=== PATIENT | female | born 1990 | race Caucasian/White ===

== ENCOUNTER 2023-08-16 16:18 | Emergency (ER) | payer BC ==
--- NOTE | 2023-08-16 16:59 | ED ---
General Adult HPI - General Chief complaint: Vaginal Bleeding Stated complaint: Poss Miscarriage Time Seen by Provider: 08/16/23 16:46 Source: patient, RN notes reviewed Mode of arrival: ambulatory Limitations: no limitations - History of Present Illness Initial comments: 33-year-old female presents emergency Department with chief complaint of possible miscarriage. Patient states that she was sent from urgent care for further evaluation. She states she's had bleeding for the last 10 days or more. Patient states her last mental cycle was at the beginning of July. Patient states she has mild abdominal cramping. She states she felt lightheaded and she is concerned as she's had bleeding for several days which brought her to the urgent care. Patient had a positive test at urgent care. Patient is A0 - Related Data Allergies Allergy/AdvReac Type Severity Reaction Status Date / Time codeine Allergy Rash/Hives Verified 08/16/23 16:41 Review of Systems ROS Statement: Those systems with pertinent positive or pertinent negative responses have been documented in the HPI. ROS Other: All systems not noted in ROS Statement are negative. Past Medical History Past Medical History: No Reported History History of Any Multi-Drug Resistant Organisms: None Reported Past Surgical History: No Surgical Hx Reported Smoking Status: Never smoker Past Alcohol Use History: None Reported Past Drug Use History: None Reported General Exam Limitations: no limitations General appearance: alert, in no apparent distress Head exam: Present: atraumatic, normocephalic, normal inspection Respiratory exam: Present: normal lung sounds bilaterally. Absent: respiratory distress, wheezes, rales, rhonchi, stridor Cardiovascular Exam: Present: regular rate, normal rhythm, normal heart sounds. Absent: systolic murmur, diastolic murmur, rubs, gallop, clicks GI/Abdominal exam: Present: soft, normal bowel sounds. Absent: distended, tenderness, guarding, rebound, rigid Back exam: Absent: CVA tenderness (R), CVA tenderness (L) Neurological exam: Present: alert Course Vital Signs 08/16/23 16:38 Temperature 98.1 F Pulse Rate 77 Respiratory 20 Rate Blood Pressure 118/81 O2 Sat by Pulse 99 Oximetry Medical Decision Making - Medical Decision Making Was pt. sent in by a medical professional or institution (, PA, SOFTWARE WRITER, urgent care, hospital, or penitentiary...) When possible be specific @ -Urgent care Did you speak to anyone other than the patient for history (EMS, parent, family, police, friend...)? What history was obtained from this source @ -No Did you review nursing and triage notes (agree or disagree)? Why? @ -I reviewed and agree with nursing and triage notes Were old charts reviewed (outside hosp., previous admission, EMS record, old EKG, old radiological studies, urgent care reports/EKG's, penitentiary records)? Report findings @ -No old charts were reviewed Differential Diagnosis (chest pain, altered mental status, abdominal pain women, abdominal pain men, vaginal bleeding, weakness, fever, dyspnea, syncope, headache, dizziness, GI bleed, back pain, seizure, CVA, palpatations, mental health, musculoskeletal)? @ -Differential Vaginal Bleeding: Spontaneous , threatened , molar , ectopic , bloody show, incompetent cervix, abruptioplacenta, placenta previa, uterine rupture, dysfunctional uterine bleeding, hemorrhage, uterine fibroids, this is not meant to be an all-inclusive list. EKG interpreted by me (3pts min.). @ -None X-rays interpreted by me (1pt min.). @ -None done CT interpreted by me (1pt min.). @ -None done U/S interpreted by me (1pt. min.). @ -Ultrasound shows no intrauterine , no complications What testing was considered but not performed or refused? (CT, X-rays, U/S, labs)? Why? @ -None What meds were considered but not given or refused? Why? @ -None Did you discuss the management of the patient with other professionals (professionals i.e. , PA, SOFTWARE WRITER, lab, RT, psych nurse, social organization professor, shellfish processing laborer, teacher, operational intelligence officer, bottle caser)? Give summary @ -No Was smoking cessation discussed for >3mins.? @ -No Was critical care preformed (if so, how long)? @ -No Were there social determinants of health that impacted care today? How? (Homelessness, low income, unemployed, alcoholism, drug addiction, transportation, low edu. Level, literacy, decrease access to med. care, care home, rehab)? @ -No Was there de-escalation of care discussed even if they declined (Discuss DNR or withdrawal of care, Hospice)? DNR status @ -No What co-morbidities impacted this encounter? (DM, HTN, Smoking, COPD, CAD, Cancer, CVA, ARF, Chemo, Hep., AIDS, mental health diagnosis, sleep apnea, morbid obesity)? @ -None Was patient admitted / discharged? Hospital course, mention meds given and route, prescriptions, significant lab abnormalities, going to OR and other pertinent info. @ -[Discharge likely is having a miscarriage patient states her hCG very low. Patient will have repeat hCG in 2 days to confirm. Patient will be discharged in stable condition. Undiagnosed new problem with uncertain prognosis? @ -No Drug Therapy requiring intensive monitoring for toxicity (Heparin, Nitro, Insulin, Cardizem)? @ -No Were any procedures done? @ -No Diagnosis/symptom? @ -Threatened miscarriage Acute, or Chronic, or Acute on Chronic? @ -[Acute Uncomplicated (without systemic symptoms) or Complicated (systemic symptoms)? @ -Uncomplicated Side effects of treatment? @ -No Exacerbation, Progression, or Severe Exacerbation? @ -No Poses a threat to life or bodily function? How? (Chest pain, [place], [place], pneumonia, PE, COPD, DKA, ARF, appy, cholecystitis, CVA, Diverticulitis, Homicidal, Suicidal, threat to staff... and all critical care pts) @ -No - Lab Data Result diagrams: 08/16/23 17:19 08/16/23 17:19 Lab Results 08/16/23 08/16/23 08/16/23 Range/Units 17:00 17:17 17:19 WBC 5.2 (3.8-10.6) k/uL RBC 4.08 (3.80-5.40) m/uL Hgb 13.6 (11.4-16.0) gm/dL Hct 39.2 (34.0-46.0) % MCV 96.1 (80.0-100.0) fL MCH 33.3 (25.0-35.0) pg MCHC 34.6 (31.0-37.0) g/dL RDW 13.1 (11.5-15.5) % Plt Count 389 (150-450) k/uL MPV 7.3 Neutrophils % 61 % Lymphocytes % 29 % Monocytes % 4 % Eosinophils % 2 % Basophils % 1 % Neutrophils # 3.2 (1.3-7.7) k/uL Lymphocytes # 1.5 (1.0-4.8) k/uL Monocytes # 0.2 (0-1.0) k/uL Eosinophils # 0.1 (0-0.7) k/uL Basophils # 0.0 (0-0.2) k/uL Sodium (137-145) mmol/L Potassium (3.5-5.1) mmol/L Chloride (98-107) mmol/L Carbon Dioxide (22-30) mmol/L Anion Gap mmol/L BUN (7-17) mg/dL Creatinine (0.52-1.04) mg/dL Est GFR (CKD-EPI)AfAm (>60 ml/min/1.73 sqM) Est GFR (CKD-EPI)NonAf (>60 ml/min/1.73 sqM) Glucose (74-99) mg/dL Calcium (8.4-10.2) mg/dL Total Bilirubin (0.2-1.3) mg/dL AST (14-36) U/L ALT (4-34) U/L Alkaline Phosphatase (38-126) U/L Total Protein (6.3-8.2) g/dL Albumin (3.5-5.0) g/dL HCG, Quant mIU/mL Urine Color Urine Appearance (Clear) Urine pH (5.0-8.0) Ur Specific [place] (1.001-1.035) Urine Protein (Negative) Urine Glucose (UA) (Negative) Urine Ketones (Negative) Urine Blood (Negative) Urine Nitrite (Negative) Urine Bilirubin (Negative) Urine Urobilinogen (<2.0) mg/dL Ur Leukocyte Esterase (Negative) Urine RBC (0-5) /hpf Urine WBC (0-5) /hpf Ur Squamous Epith Cells (0-4) /hpf Urine Mucus (None) /hpf Blood Type A Positive Blood Type Confirm A Positive Blood Type Recheck No Previous Record Bld Type Recheck Status CABO Indicated 08/16/23 08/16/23 Range/Units 17:19 17:19 WBC (3.8-10.6) k/uL RBC (3.80-5.40) m/uL Hgb (11.4-16.0) gm/dL Hct (34.0-46.0) % MCV (80.0-100.0) fL MCH (25.0-35.0) pg MCHC (31.0-37.0) g/dL RDW (11.5-15.5) % Plt Count (150-450) k/uL MPV Neutrophils % % Lymphocytes % % Monocytes % % Eosinophils % % Basophils % % Neutrophils # (1.3-7.7) k/uL Lymphocytes # (1.0-4.8) k/uL Monocytes # (0-1.0) k/uL Eosinophils # (0-0.7) k/uL Basophils # (0-0.2) k/uL Sodium 143 (137-145) mmol/L Potassium 4.0 (3.5-5.1) mmol/L Chloride 108 H (98-107) mmol/L Carbon Dioxide 21 L (22-30) mmol/L Anion Gap 14 mmol/L BUN 17 (7-17) mg/dL Creatinine 0.65 (0.52-1.04) mg/dL Est GFR (CKD-EPI)AfAm >90 (>60 ml/min/1.73 sqM) Est GFR (CKD-EPI)NonAf >90 (>60 ml/min/1.73 sqM) Glucose 86 (74-99) mg/dL Calcium 9.3 (8.4-10.2) mg/dL Total Bilirubin 0.5 (0.2-1.3) mg/dL AST 24 (14-36) U/L ALT 23 (4-34) U/L Alkaline Phosphatase 66 (38-126) U/L Total Protein 7.6 (6.3-8.2) g/dL Albumin 4.7 (3.5-5.0) g/dL HCG, Quant 23.3 mIU/mL Urine Color Red Urine Appearance Turbid H (Clear) Urine pH 6.0 (5.0-8.0) Ur Specific [place] 1.028 (1.001-1.035) Urine Protein 1+ H (Negative) Urine Glucose (UA) Negative (Negative) Urine Ketones Trace H (Negative) Urine Blood Large H (Negative) Urine Nitrite Negative (Negative) Urine Bilirubin Negative (Negative) Urine Urobilinogen <2.0 (<2.0) mg/dL Ur Leukocyte Esterase Small H (Negative) Urine RBC >182 H (0-5) /hpf Urine WBC 87 H (0-5) /hpf Ur Squamous Epith Cells 18 H (0-4) /hpf Urine Mucus Rare H (None) /hpf Blood Type Blood Type Confirm Blood Type Recheck Bld Type Recheck Status Disposition Clinical Impression: Threatened miscarriage Disposition: HOME SELF-CARE Condition: Stable Instructions (If sedation given, give patient instructions): Threatened Miscarriage (ED) Additional Instructions: Please return to the Emergency Department if symptoms worsen or any other concerns. Is patient prescribed a controlled substance at d/c from ED?: No Referrals: Edmundo Garza MD [Primary Care Provider] - 1-2 days Time of Disposition: 18:38
[2023-08-16 17:49] LABS: ALT 23 U/L (4-34); AST 24 U/L (14-36); African American GFR (CKD) >90 (>60 ml/min/1.73 sqM); Albumin 4.7 g/dL (3.5-5.0); Alkaline Phosphatase 66 U/L (38-126); Anion Gap 14 mmol/L; Blood Urea Nitrogen 17 mg/dL (7-17); Calcium 9.3 mg/dL (8.4-10.2); Carbon Dioxide 21 mmol/L (22-30); Chloride 108 mmol/L (98-107); Glucose 86 mg/dL (74-99); Non-African American GFR(CKD) >90 (>60 ml/min/1.73 sqM); Sodium 143 mmol/L (137-145); Total Bilirubin 0.5 mg/dL (0.2-1.3); Total Protein 7.6 g/dL (6.3-8.2)
[2023-08-16 17:52] LABS: Basophils % (A) 1 %; Eosinophils # (A) 0.1 k/uL (0-0.7); Eosinophils % (A) 2 %; HCT 39.2 % (34.0-46.0); HGB 13.6 gm/dL (11.4-16.0); Lymphocytes # (A) 1.5 k/uL (1.0-4.8); Lymphocytes % (A) 29 %; MCH 33.3 pg (25.0-35.0); MCHC 34.6 g/dL (31.0-37.0); MCV 96.1 fL (80.0-100.0); Mean Platelet Volume 7.3; Monocytes # (A) 0.2 k/uL (0-1.0); Monocytes % (A) 4 %; Neutrophils # (A) 3.2 k/uL (1.3-7.7); Neutrophils % (A) 61 %; Platelet Count 389 k/uL (150-450); RBC 4.08 m/uL (3.80-5.40); RDW 13.1 % (11.5-15.5); WBC 5.2 k/uL (3.8-10.6)
[2023-08-16 17:55] LABS: Appearance,Urine Turbid (Clear); Bilirubin,Urine Negative (Negative); Blood,Urine Large (Negative); Color,Urine Red; Glucose,Urine (UA) Negative (Negative); Ketones,Urine Trace (Negative); Leukocyte Esterase,Urine Small (Negative); Mucus,Urine Rare /hpf; Nitrite,Urine Negative (Negative); Protein,Urine 1+ (Negative); RBC,Urine >182 /hpf (0-5); Specific Gravity,Urine 1.028 (1.001-1.035); Squamous Epithelial Cell,Urine 18 /hpf (0-4); Urobilinogen,Urine <2.0 mg/dL (<2.0); WBC,Urine 87 /hpf (0-5)
[2023-08-16 18:06] LABS: HCG,Quantitative Serum 23.3 mIU/mL
--- NOTE | 2023-08-16 18:25 | US ---
EXAMINATION TYPE: Transabdominal and transvaginal ultrasound pelvis OB less than 14 weeks DATE OF EXAM: 08/16/2023 6:09 PM COMPARISON: NONE CLINICAL INDICATION: Female, 33 years old with history of , pain, no established ultrasound; patient went to urgent care because she has been bleeding since 08/04/2023 and found out today she wa s . , no pain, h/o IUI this past year with no success, not currently on fertility medicat ion EXAM PERFORMED: Ultrasound of the pelvis was performed via transabdominal and transvaginal approach. EXAM MEASUREMENTS: GESTATIONAL AGE / DATING Physician Established: Not yet established Dates by LMP: (1 weeks/5 days) EDC: 05/10/2024 Dates by First Scan: No previous this is first scan Dates by Current Scan for: No IUP seen at this time MATERNAL ANATOMY Uterus: 8.0 x 4.8 x 3.9cm. Endometrial thickness 3.4 mm by transvaginal exam Right Ovary: 3.6 x 1.9 x 1.8cm Left Ovary: 2.9 x 2.3 x 1.8cm Post CDS / Adnexa: wnl Presence of free fluid: no Presence of corpus luteal cyst: no Presence of subchorionic bleed: no GESTATION / SURVEY IUP: No IUP seen at this time Date of LMP: 08/04/2023 Beta HcG (if available): 23.3 No adnexal mass identified. IMPRESSION: 1. No evidence of intrauterine or extrauterine at this time. 2. Recommend follow-up of serial serum beta-hCG levels, and ultrasound/s as needed.
[2023-08-16 19:27] VITALS: BP 110/61; PULSE 98; RESP 18; TEMP 98.7
== END 2023-08-16 19:09 | disposition home or self-care (01) ==
LOC: EC 16:18
DX: O20.0 Threatened abortion (principal); Z88.5 Allergy status to narcotic agent; Z3A.01 Less than 8 weeks gestation of pregnancy
CPT/HCPCS: 36415; 76801; 76817; 80053; 81001; 84702; 85025; 86900; 86901; 99284

== ENCOUNTER → 2023-08-19 | Outpatient (CLI) | payer BC | END | disposition home or self-care (01) | LOC: LABWHC1 09:57 | DX: Z00.00 Encounter for general adult medical examination without abnormal findings (principal); O20.0 Threatened abortion; Z3A.00 Weeks of gestation of pregnancy not specified | CPT/HCPCS: 36415; 84702 ==

== ENCOUNTER 2023-08-31 13:12 | Emergency (ER) | payer BC ==
[2023-08-31 13:48] VITALS: TEMP 98.7
--- NOTE | 2023-08-31 13:59 | ED ---
General Adult HPI - General Chief complaint: Neuro Symptoms/Deficit Stated complaint: hands/feet numbness Time Seen by Provider: 08/31/23 13:35 Source: patient, RN notes reviewed, old records reviewed Mode of arrival: ambulatory - History of Present Illness Initial comments: This a 33-year-old female complains of tingling sensation in both legs up to mid thigh and both arms. Patient states it started after she had a miscarriage 2 weeks ago. Patient states it's constant all day long every day. Patient denies any weakness. Patient is able to coordinate everything normally. Patient states it just feels different on her extremities as if they were falling asleep. Patient denies any fever chills. Patient has any back or neck pain. Patient denies any similar symptoms in the past. Patient denies starting any medications. - Related Data Home Medications Medication Instructions Recorded Confirmed Cariprazine HCl [Vraylar] 3 mg PO HS 08/31/23 08/31/23 Cyanocobalamin (Vitamin B-12) 1,000 mcg PO DAILY 08/31/23 08/31/23 [Vitamin B-12] Dextroamphetamine/Amphetamine 15 mg PO BID 08/31/23 08/31/23 [Adderall] Multivitamins, Thera [Multivitamin 1 tab PO DAILY 08/31/23 08/31/23 (formulary)] Sertraline [Zoloft] 150 mg PO DAILY 08/31/23 08/31/23 desog-e.estradioL/e.estradioL 1 tab PO DIRECTED 08/31/23 08/31/23 [Azurette 28 Day Tablet] hydrOXYzine HCL [Atarax] 50 mg PO BID PRN 08/31/23 08/31/23 Allergies Allergy/AdvReac Type Severity Reaction Status Date / Time codeine Allergy Rash/Hives Verified 08/31/23 14:44 Review of Systems ROS Statement: Those systems with pertinent positive or pertinent negative responses have been documented in the HPI. ROS Other: All systems not noted in ROS Statement are negative. Past Medical History Past Medical History: No Reported History History of Any Multi-Drug Resistant Organisms: None Reported Past Surgical History: No Surgical Hx Reported Smoking Status: Never smoker Past Alcohol Use History: None Reported Past Drug Use History: None Reported General Exam - General Exam Comments Initial Comments: GENERAL: Patient is well-developed and well-nourished. Patient is nontoxic and well- hydrated and is in no acute distress. ENT: Neck is soft and supple. No significant lymphadenopathy is noted. Oropharynx is clear. Moist mucous membranes. Neck has full range of motion without eliciting any pain. EYES: The sclera were anicteric and conjunctiva were pink and moist. Extraocular movements were intact and pupils were equal round and reactive to light. Eyelids were unremarkable. PULMONARY: Unlabored respirations. Good breath sounds bilaterally. No audible rales rhonchi or wheezing was noted. CARDIOVASCULAR: There is a regular rate and rhythm without any murmurs gallops or rubs. ABDOMEN: Soft and nontender with normal bowel sounds. SKIN: Skin is clear with no lesions or rashes and otherwise unremarkable. NEUROLOGIC: Patient is alert and oriented x3. Cranial nerves II through XII are grossly i ntact. Motor and sensory are also intact. Normal speech, volume and content. Symmetrical smile. Finger to nose testing is normal bilaterally. Patient's NIH is 0 MUSCULOSKELETAL: Normal extremities with adequate strength and full range of motion. LYMPHATICS: No significant lymphadenopathy is noted PSYCHIATRIC: Normal psychiatric evaluation. Course Vital Signs 08/31/23 13:30 Temperature 98.7 F Pulse Rate 68 Respiratory 18 Rate Blood Pressure 108/67 O2 Sat by Pulse 99 Oximetry Medical Decision Making - Medical Decision Making Was pt. sent in by a medical professional or institution ([facility] Joshua, BUILD AND DEPLOYMENT ENGINEER, urgent care, hospital, or prison...) When possible be specific @ -No Did you speak to anyone other than the patient for history (EMS, parent, family, police, friend...)? What history was obtained from this source @ -No Did you review nursing and triage notes (agree or disagree)? Why? @ -I reviewed and agree with nursing and triage notes Were old charts reviewed (outside hosp., previous admission, EMS record, old EKG, old radiological studies, urgent care reports/EKG's, prison records)? Report findings @ -No old charts were reviewed Differential Diagnosis (chest pain, altered mental status, abdominal pain women, abdominal pain men, vaginal bleeding, weakness, fever, dyspnea, syncope, headache, dizziness, GI bleed, back pain, seizure, CVA, palpatations, mental health, musculoskeletal)? @ -not applicable EKG interpreted by me (3pts min.). @ -As above X-rays interpreted by me (1pt min.). @ -None done CT interpreted by me (1pt min.). @ -None done U/S interpreted by me (1pt. min.). @ -None done What testing was considered but not performed or refused? (CT, X-rays, U/S, labs)? Why? @ -None What meds were considered but not given or refused? Why? @ -None Did you discuss the management of the patient with other professionals (professionals i.e. , PA, BUILD AND DEPLOYMENT ENGINEER, lab, RT, psych nurse, social media job titles, classification analyst, teacher, service officer, case loader operator)? Give summary @ -No Was smoking cessation discussed for >3mins.? @ -No Was critical care preformed (if so, how long)? @ -No Were there social determinants of health that impacted care today? How? (Homelessness, low income, unemployed, alcoholism, drug addiction, transportation, low edu. Level, literacy, decrease access to med. care, half-way, rehab)? @ -No Was there de-escalation of care discussed even if they declined (Discuss DNR or withdrawal of care, Hospice)? DNR status @ -No What co-morbidities impacted this encounter? (DM, HTN, Smoking, COPD, CAD, Cancer, CVA, ARF, Chemo, Hep., AIDS, mental health diagnosis, sleep apnea, morbid obesity)? @ -None Was patient admitted / discharged? Hospital course, mention meds given and r oute, prescriptions, significant lab abnormalities, going to OR and other pertinent info. @ -Lab work was all within normal range. Patient has a primary medical care doctor that she'll follow-up with for these paresthesias. Patient was instructed to return if there is any worsening or new symptoms Undiagnosed new problem with uncertain prognosis? @ -No Drug Therapy requiring intensive monitoring for toxicity (Heparin, Nitro, Insulin, Cardizem)? @ -No Were any procedures done? @ -No Diagnosis/symptom? @ -Paresthesias Acute, or Chronic, or Acute on Chronic? @ -Acute Uncomplicated (without systemic symptoms) or Complicated (systemic symptoms)? @ -Complicated Side effects of treatment? @ -No Exacerbation, Progression, or Severe Exacerbation? @ -No Poses a threat to life or bodily function? How? (Chest pain, [place], [place], pneumonia, PE, COPD, DKA, ARF, appy, cholecystitis, CVA, Diverticulitis, Homicidal, Suicidal, threat to staff... and all critical care pts) @ -No - Lab Data Result diagrams: 08/31/23 13:49 08/31/23 13:49 Lab Results 08/31/23 08/31/23 08/31/23 Range/Units 13:49 13:49 13:49 WBC 3.8 (3.8-10.6) k/uL RBC 3.65 L (3.80-5.40) m/uL Hgb 12.4 (11.4-16.0) gm/dL Hct 35.5 (34.0-46.0) % MCV 97.2 (80.0-100.0) fL MCH 34.0 (25.0-35.0) pg MCHC 34.9 (31.0-37.0) g/dL RDW 12.9 (11.5-15.5) % Plt Count 302 (150-450) k/uL MPV 7.4 Neutrophils % 49 % Lymphocytes % 39 % Monocytes % 4 % Eosinophils % 3 % Basophils % 1 % Neutrophils # 1.9 (1.3-7.7) k/uL Lymphocytes # 1.5 (1.0-4.8) k/uL Monocytes # 0.2 (0-1.0) k/uL Eosinophils # 0.1 (0-0.7) k/uL Basophils # 0.0 (0-0.2) k/uL Sodium 141 (137-145) mmol/L Potassium 4.0 (3.5-5.1) mmol/L Chloride 106 (98-107) mmol/L Carbon Dioxide 23 (22-30) mmol/L Anion Gap 12 mmol/L BUN 18 H (7-17) mg/dL Creatinine 0.65 (0.52-1.04) mg/dL Est GFR (CKD-EPI)AfAm >90 (>60 ml/min/1.73 sqM) Est GFR (CKD-EPI)NonAf >90 (>60 ml/min/1.73 sqM) Glucose 86 (74-99) mg/dL Calcium 9.1 (8.4-10.2) mg/dL Magnesium 1.8 (1.6-2.3) mg/dL Total Bilirubin 0.7 (0.2-1.3) mg/dL AST 19 (14-36) U/L ALT 19 (4-34) U/L Alkaline Phosphatase 53 (38-126) U/L Total Protein 7.3 (6.3-8.2) g/dL Albumin 4.4 (3.5-5.0) g/dL TSH 1.370 (0.465-4.680) mIU/L Urine Opiates Screen Not Detected (NotDetected) Ur Oxycodone Screen Not Detected (NotDetected) Urine Methadone Screen Not Detected (NotDetected) Ur Barbiturates Screen Not Detected (NotDetected) U Tricyclic Antidepress Not Detected (NotDetected) Ur Phencyclidine Scrn Not Detected (NotDetected) Ur Amphetamines Screen Detected H (NotDetected) U Methamphetamines Scrn Not Detected (NotDetected) U Benzodiazepines Scrn Not Detected (NotDetected) Urine Cocaine Screen Not Detected (NotDetected) U Marijuana (THC) Screen Not Detected (NotDetected) Disposition Clinical Impression: Paresthesia Disposition: HOME SELF-CARE Condition: Good Instructions (If sedation given, give patient instructions): Paresthesia (ED) Is patient prescribed a controlled substance at d/c from ED?: No Referrals: Edmundo Garza MD [Primary Care Provider] - 1-2 days Time of Disposition: 15:10
[2023-08-31 14:08] LABS: Basophils % (A) 1 %; Eosinophils # (A) 0.1 k/uL (0-0.7); Eosinophils % (A) 3 %; HCT 35.5 % (34.0-46.0); HGB 12.4 gm/dL (11.4-16.0); Lymphocytes # (A) 1.5 k/uL (1.0-4.8); Lymphocytes % (A) 39 %; MCHC 34.9 g/dL (31.0-37.0); MCV 97.2 fL (80.0-100.0); Mean Platelet Volume 7.4; Monocytes # (A) 0.2 k/uL (0-1.0); Monocytes % (A) 4 %; Neutrophils # (A) 1.9 k/uL (1.3-7.7); Neutrophils % (A) 49 %; Platelet Count 302 k/uL (150-450); RBC 3.65 m/uL (3.80-5.40); RDW 12.9 % (11.5-15.5); WBC 3.8 k/uL (3.8-10.6)
[2023-08-31 14:20] LABS: ALT 19 U/L (4-34); AST 19 U/L (14-36); African American GFR (CKD) >90 (>60 ml/min/1.73 sqM); Albumin 4.4 g/dL (3.5-5.0); Alkaline Phosphatase 53 U/L (38-126); Anion Gap 12 mmol/L; Blood Urea Nitrogen 18 mg/dL (7-17); Calcium 9.1 mg/dL (8.4-10.2); Carbon Dioxide 23 mmol/L (22-30); Chloride 106 mmol/L (98-107); Glucose 86 mg/dL (74-99); Magnesium 1.8 mg/dL (1.6-2.3); Non-African American GFR(CKD) >90 (>60 ml/min/1.73 sqM); Sodium 141 mmol/L (137-145); Total Bilirubin 0.7 mg/dL (0.2-1.3); Total Protein 7.3 g/dL (6.3-8.2)
[2023-08-31 14:32] LABS: Amphetamine Screen,Urine Detected (NotDetected); Barbiturate Screen,Urine Not Detected (NotDetected); Benzodiazepines Screen,Urine Not Detected (NotDetected); Cocaine Screen,Urine Not Detected (NotDetected); Methadone Screen, Urine Not Detected (NotDetected); Opiate Screen,Urine Not Detected (NotDetected); Oxycodone Screen, Urine Not Detected (NotDetected); Phencyclidine Screen,Urine Not Detected (NotDetected); Tricyclic Antidepressant,Urine Not Detected (NotDetected); Urn Cannabinoid Scrn Not Detected (NotDetected)
[2023-08-31 15:52] VITALS: BP 94/54; PULSE 70; RESP 16
== END 2023-08-31 15:31 | disposition home or self-care (01) ==
LOC: EC 13:12
DX: R20.2 Paresthesia of skin (principal); Z88.5 Allergy status to narcotic agent
CPT/HCPCS: 36415; 80053; 80306; 83735; 84443; 85025; 99284

== ENCOUNTER 2023-11-17 18:01 | Inpatient (IN) | payer BC ==
--- NOTE | 2023-11-17 19:15 | ED ---
General Adult HPI - General Chief complaint: Neuro Symptoms/Deficit Stated complaint: Numbness in both legs Time Seen by Provider: 11/17/23 19:10 Source: patient, family Mode of arrival: ambulatory Limitations: no limitations - History of Present Illness Initial comments: 33-year-old female presenting to the ED with a chief complaint of weakness. Patient states that since July has had intermittent weakness of her bilateral lower legs. Reports that this started after a miscarriage. Denies any viral symptoms prior to onset of symptoms such as abdominal pain, nausea, vomiting, changes in bowel or bladder habits, or URI symptoms. States that this started from the bottom of her feet and progressively worked its way up and feeling of numbness is now in her abdomen. States that she was seeing a chiropractor and reports that this seemed to help at first however is not helping anymore. Does note some back pain with this as well. No saddle anes thesia or incontinence. However, patient does note that she seems to have difficulties completely voiding urine. Secondary to the symptoms, patient states that she has had significant difficulty ambulating. - Related Data Home Medications Medication Instructions Recorded Confirmed Cariprazine HCl [Vraylar] 3 mg PO HS 08/31/23 11/17/23 Dextroamphetamine/Amphetamine 15 mg PO BID@0900,1430 08/31/23 11/17/23 [Adderall] Multivitamins, Thera [Multivitamin 1 tab PO DAILY 08/31/23 11/17/23 (formulary)] Sertraline [Zoloft] 150 mg PO DAILY 08/31/23 11/17/23 hydrOXYzine HCL [Atarax] 50 mg PO BID PRN 08/31/23 11/17/23 Allergies Allergy/AdvReac Type Severity Reaction Status Date / Time codeine Allergy Rash/Hives Verified 11/17/23 21:09 Review of Systems ROS Statement: Those systems with pertinent positive or pertinent negative responses have been documented in the HPI. ROS Other: All systems not noted in ROS Statement are negative. Past Medical History Past Medical History: No Reported History History of Any Multi-Drug Resistant Organisms: None Reported Past Surgical History: No Surgical Hx Reported Past Psychological History: No Psychological Hx Reported Smoking Status: Never smoker Past Alcohol Use History: Occasional Past Drug Use History: None Reported General Exam - General Exam Comments Initial Comments: Visual Physical Exam Vital signs reviewed General: Well-appearing, nontoxic, no acute distress. Head: Normocephalic, atraumatic Eyes: PERRLA, EOMI ENT: Airway patent Chest: Nonlabored breathing Skin: No visual rash, normal skin tone Neuro: Alert and oriented 3 Musculoskeletal: No gross abnormalities. Strength and sensation equal and intact in bilateral lower extremities. Limitations: physical limitation (Difficulty ambulating) Eye exam: Present: PERRL, EOMI Neck exam: Present: normal inspection Respiratory exam: Present: normal lung sounds bilaterally Cardiovascular Exam: Present: regular rate, normal rhythm GI/Abdominal exam: Present: soft, normal bowel sounds. Absent: distended, tenderness, guarding, rebound, rigid Extremities exam: Present: normal inspection, other (Plantarflexion and dorsiflexion intact. Patellar reflexes intact bilaterally as well. Patient does have difficulties ambulating. Unable to stand on one leg bilaterally without falling. ) Neurological exam: Present: alert, oriented X3, CN II-XII intact Skin exam: Present: warm, dry Course Vital Signs 11/17/23 18:37 Temperature 97.8 F Pulse Rate 100 Respiratory 18 Rate Blood Pressure 127/79 O2 Sat by Pulse 98 Oximetry Medical Decision Making - Medical Decision Making Quicknote portion performed. Signed Erlin Encinas PA-C Was pt. sent in by a medical professional or institution ([facility], DATA CONVERSION DEVELOPER, urgent care, hospital, or detention...) When possible be specific @ -No Did you speak to anyone other than the patient for history (EMS, parent, family, police, friend...)? What history was obtained from this source @ -No Did you review nursing and triage notes (agree or disagree)? Why? @ -I reviewed and agree with nursing and triage notes Were old charts reviewed (outside hosp., previous admission, EMS record, old EKG, old radiological studies, urgent care reports/EKG's, detention records)? Report findings @ -No old charts were reviewed Differential Diagnosis (chest pain, altered mental status, abdominal pain women, abdominal pain men, vaginal bleeding, weakness, fever, dyspnea, syncope, headache, dizziness, GI bleed, back pain, seizure, CVA, palpatations, mental health, musculoskeletal)? @ -Differential Weakness: Hypoglycemia, shock, sepsis, hyponatremia, anemia, infection, [place], ETOH, adverse medicine reaction, overdose, stroke, this is not meant to be an all-inclusive list. EKG interpreted by me (3pts min.). @ -None X-rays interpreted by me (1pt min.). @ -None done CT interpreted by me (1pt min.). @ -CT brain and lumbar spine interpreted me which revealed no evidence of acute finding. U/S interpreted by me (1pt. min.). @ -None done What testing was considered but not performed or refused? (CT, X-rays, U/S, labs)? Why? @ -None What meds were considered but not given or refused? Why? @ -None Did you discuss the management of the patient with other professionals (professionals i.e. , PA, DATA CONVERSION DEVELOPER, lab, RT, psych nurse, clinical social work therapist, radioactivity technician, t eacher, plant protection officer, director case)? Give summary @ -Case discussed with Dr. Garza who accepts admission Was smoking cessation discussed for >3mins.? @ -No Was critical care preformed (if so, how long)? @ -No Were there social determinants of health that impacted care today? How? (Homelessness, low income, unemployed, alcoholism, drug addiction, transportation, low edu. Level, literacy, decrease access to med. care, fci, rehab)? @ -No Was there de-escalation of care discussed even if they declined (Discuss DNR or withdrawal of care, Hospice)? DNR status @ -No What co-morbidities impacted this encounter? (DM, HTN, Smoking, COPD, CAD, Cancer, CVA, ARF, Chemo, Hep., AIDS, mental health diagnosis, sleep apnea, morbid obesity)? @ -None Was patient admitted / discharged? Hospital course, mention meds given and route, prescriptions, significant lab abnormalities, going to OR and other pertinent info. @ -Admission 33-year-old female presenting to the ED with a chief complaint of weakness. Patient states over the past few months has had difficulties with weakness/paresthesias stating that since onset has feels some ascending weakness/paresthesias from her feet now going up to her abdomen which is now causing her significant difficulties in ambulating. On examination patient has good plantarflexion dorsiflexion of bilateral lower extremities. Good sensation as well. Good patellar reflexes. However upon ambulation patient is having significant difficulties. Unable to stand on [address] over[address] of the brain and lumbar spine revealed no evidence of acute finding. Laboratory studies reviewed. CBC unremarkable. CMP unremarkable. CRP 0.5. UA largely unremarkable. ESR pending. Secondary to the significant difficulty ambulating patient will be admitted to observation with consult to neurology. Undiagnosed new problem with uncertain prognosis? @ -No Drug Therapy requiring intensive monitoring for toxicity (Heparin, Nitro, Insulin, Cardizem)? @ -No Were any procedures done? @ -No Diagnosis/symptom? @ -Difficulty ambulating Acute, or Chronic, or Acute on Chronic? @ -Acute on chronic Uncomplicated (without systemic symptoms) or Complicated (systemic symptoms)? @ -Complicated Side effects of treatment? @ -No Exacerbation, Progression, or Severe Exacerbation? @ -No Poses a threat to life or bodily function? How? (Chest pain, [place], AZ, pneumonia, PE, COPD, DKA, ARF, appy, cholecystitis, CVA, Diverticulitis, Homicidal, Suici dolores, threat to staff... and all critical care pts) @ -Possibly, GBS syndrome or other causes of weakness/difficulty ambulating - Lab Data Result diagrams: 11/17/23 20:06 11/17/23 20:06 Lab Results 11/17/23 11/17/23 11/17/23 Range/Units 20:06 20:06 20:06 WBC 6.1 (3.8-10.6) k/uL RBC 4.06 (3.80-5.40) m/uL Hgb 13.3 (11.4-16.0) gm/dL Hct 39.6 (34.0-46.0) % MCV 97.6 (80.0-100.0) fL MCH 32.7 (25.0-35.0) pg MCHC 33.5 (31.0-37.0) g/dL RDW 13.4 (11.5-15.5) % Plt Count 358 (150-450) k/uL MPV 7.5 Neutrophils % 53 % Lymphocytes % 38 % Monocytes % 4 % Eosinophils % 2 % Basophils % 0 % Neutrophils # 3.3 (1.3-7.7) k/uL Lymphocytes # 2.3 (1.0-4.8) k/uL Monocytes # 0.2 (0-1.0) k/uL Eosinophils # 0.1 (0-0.7) k/uL Basophils # 0.0 (0-0.2) k/uL Sodium (137-145) mmol/L Potassium (3.5-5.1) mmol/L Chloride (98-107) mmol/L Carbon Dioxide (22-30) mmol/L Anion Gap mmol/L BUN (7-17) mg/dL Creatinine (0.52-1.04) mg/dL Est GFR (CKD-EPI)AfAm (>60 ml/min/1.73 sqM) Est GFR (CKD-EPI)NonAf (>60 ml/min/1.73 sqM) Glucose (74-99) mg/dL Calcium (8.4-10.2) mg/dL Total Bilirubin (0.2-1.3) mg/dL AST (14-36) U/L ALT (4-34) U/L Alkaline Phosphatase (38-126) U/L C-Reactive Protein (<1.0) mg/dL Total Protein (6.3-8.2) g/dL Albumin (3.5-5.0) g/dL Urine Color Colorless Urine Appearance Cloudy H (Clear) Urine pH 6.0 (5.0-8.0) Ur Specific Brethren 1.013 (1.001-1.035) Urine Protein Negative (Negative) Urine Glucose (UA) Negative (Negative) Urine Ketones Negative (Negative) Urine Blood Negative (Negative) Urine Nitrite Negative (Negative) Urine Bilirubin Negative (Negative) Urine Urobilinogen <2.0 (<2.0) mg/dL Ur Leukocyte Esterase Moderate H (Negative) Urine RBC 2 (0-5) /hpf Urine WBC 3 (0-5) /hpf Ur Squamous Epith Cells 9 H (0-4) /hpf Urine Bacteria Rare H (None) /hpf Urine Mucus Rare H (None) /hpf Urine HCG, Qual Not Detected (Not Detectd) 11/17/23 Range/Units 20:06 WBC (3.8-10.6) k/uL RBC (3.80-5.40) m/uL Hgb (11.4-16.0) gm/dL Hct (34.0-46.0) % MCV (80.0-100.0) fL MCH (25.0-35.0) pg MCHC (31.0-37.0) g/dL RDW (11.5-15.5) % Plt Count (150-450) k/uL MPV Neutrophils % % Lymphocytes % % Monocytes % % Eosinophils % % Basophils % % Neutrophils # (1.3-7.7) k/uL Lymphocytes # (1.0-4.8) k/uL Monocytes # (0-1.0) k/uL Eosinophils # (0-0.7) k/uL Basophils # (0-0.2) k/uL Sodium 140 (137-145) mmol/L Potassium 3.6 (3.5-5.1) mmol/L Chloride 109 H (98-107) mmol/L Carbon Dioxide 21 L (22-30) mmol/L Anion Gap 10 mmol/L BUN 13 (7-17) mg/dL Creatinine 0.65 (0.52-1.04) mg/dL Est GFR (CKD-EPI)AfAm >90 (>60 ml/min/1.73 sqM) Est GFR (CKD-EPI)NonAf >90 (>60 ml/min/1.73 sqM) Glucose 90 (74-99) mg/dL Calcium 9.1 (8.4-10.2) mg/dL Total Bilirubin 0.6 (0.2-1.3) mg/dL AST 24 (14-36) U/L ALT 20 (4-34) U/L Alkaline Phosphatase 60 (38-126) U/L C-Reactive Protein 0.5 (<1.0) mg/dL Total Protein 7.7 (6.3-8.2) g/dL Albumin 4.6 (3.5-5.0) g/dL Urine Color Urine Appearance (Clear) Urine pH (5.0-8.0) Ur Specific Brethren (1.001-1.035) Urine Protein (Negative) Urine Glucose (UA) (Negative) Urine Ketones (Negative) Urine Blood (Negative) Urine Nitrite (Negative) Urine Bilirubin (Negative) Urine Urobilinogen (<2.0) mg/dL Ur Leukocyte Esterase (Negative) Urine RBC (0-5) /hpf Urine WBC (0-5) /hpf Ur Squamous Epith Cells (0-4) /hpf Urine Bacteria (None) /hpf Urine Mucus (None) /hpf Urine HCG, Qual (Not Detectd) Disposition Clinical Impression: Difficulty in walking, Paresthesias Disposition: ADMITTED IP TO THIS [facility] Condition: Good Referrals: Edmundo Garza MD [Primary Care Provider] - 1-2 days Time of Disposition: 23:00
[2023-11-17 20:16] LABS: Basophils % (A) 0 %; Eosinophils # (A) 0.1 k/uL (0-0.7); Eosinophils % (A) 2 %; HCT 39.6 % (34.0-46.0); HGB 13.3 gm/dL (11.4-16.0); Lymphocytes # (A) 2.3 k/uL (1.0-4.8); Lymphocytes % (A) 38 %; MCH 32.7 pg (25.0-35.0); MCHC 33.5 g/dL (31.0-37.0); MCV 97.6 fL (80.0-100.0); Mean Platelet Volume 7.5; Monocytes # (A) 0.2 k/uL (0-1.0); Monocytes % (A) 4 %; Neutrophils # (A) 3.3 k/uL (1.3-7.7); Neutrophils % (A) 53 %; Platelet Count 358 k/uL (150-450); RBC 4.06 m/uL (3.80-5.40); RDW 13.4 % (11.5-15.5); WBC 6.1 k/uL (3.8-10.6)
[2023-11-17 20:26] LABS: Appearance,Urine Cloudy (Clear); Bacteria,Urine Rare /hpf; Bilirubin,Urine Negative (Negative); Blood,Urine Negative (Negative); Color,Urine Colorless; Glucose,Urine (UA) Negative (Negative); Ketones,Urine Negative (Negative); Leukocyte Esterase,Urine Moderate (Negative); Mucus,Urine Rare /hpf; Nitrite,Urine Negative (Negative); Protein,Urine Negative (Negative); RBC,Urine 2 /hpf (0-5); Specific Gravity,Urine 1.013 (1.001-1.035); Squamous Epithelial Cell,Urine 9 /hpf (0-4); Urobilinogen,Urine <2.0 mg/dL (<2.0); WBC,Urine 3 /hpf (0-5)
[2023-11-17 20:28] LABS: ALT 20 U/L (4-34); AST 24 U/L (14-36); African American GFR (CKD) >90 (>60 ml/min/1.73 sqM); Albumin 4.6 g/dL (3.5-5.0); Alkaline Phosphatase 60 U/L (38-126); Anion Gap 10 mmol/L; Blood Urea Nitrogen 13 mg/dL (7-17); C Reactive Protein 0.5 mg/dL (<1.0); Calcium 9.1 mg/dL (8.4-10.2); Carbon Dioxide 21 mmol/L (22-30); Chloride 109 mmol/L (98-107); Glucose 90 mg/dL (74-99); Non-African American GFR(CKD) >90 (>60 ml/min/1.73 sqM); Potassium 3.6 mmol/L (3.5-5.1); Sodium 140 mmol/L (137-145); Total Bilirubin 0.6 mg/dL (0.2-1.3); Total Protein 7.7 g/dL (6.3-8.2)
--- NOTE | 2023-11-17 21:18 | CT ---
EXAMINATION TYPE: CT lumbar spine wo con CT DLP: 541.9 mGycm, Automated exposure control for dose reduction was used. DATE OF EXAM: 11/17/2023 8:44 PM COMPARISON: . CLINICAL INDICATION:Female, 33 years old with history of back pain weakness bilateral lower extremiti es; PHH, difficulty standing and walking. TECHNIQUE: Multiple axial images were obtained from the midportion of T11 through the sacroiliac dian nts. Soft tissue and bone windows in coronal and sagittal planes were obtained and reviewed. Contrast used: mL of , none. Oral contrast used: none. FINDINGS: Alignment: There are 5 lumbar type vertebral bodies with normal height and alignment. Bone: No evidence of fracture is identified. No lytic/blastic lesion. Normal mineralization. Disc levels: Mild broad-based posterior disc bulging at L3-L4, L4-L5, L5-S1 with mild canal and neural foraminal n arrowing suggested. No definite pathologic finding within the spinal canal otherwise in the limits of CT. If there is persistent concern, nonemergent MRI may be considered. Other: No abnormality seen in the visualized paraspinous soft tissues. IMPRESSION: Unremarkable lumbar spine CT.
--- NOTE | 2023-11-17 22:51 | CT ---
EXAMINATION TYPE: CT brain wo con CT DLP: 1078.4 mGycm, Automated exposure control for dose reduction was used. DATE OF EXAM: 11/17/2023 9:54 PM COMPARISON: None. CLINICAL INDICATION:Female, 33 years old with history of weakness bilateral lower extremities, lower extremity weakness TECHNIQUE: Brain: Axial CT images of the brain were obtained with coronal and sagittal reformats created and rev iewed. Contrast used: None. Oral contrast used: None. FINDINGS: Extra-axial spaces: No abnormal extra-axial fluid collections. Ventricular system: Within normal limits. Cerebral parenchyma: No increased attenuation to suggest acute intraparenchymal hemorrhage. The gra y-white matter interface appears maintained. No significant atrophy. White matter unremarkable by C T. Cerebellum: No acute abnormality. Mass effect: No evidence of mass effect or midline shift. Intracranial vasculature: Unremarkable Soft tissues: No acute or concerning abnormality. Visualized orbits: Orbital contents appear grossly intact. Calvarium/osseous structures: No evidence of calvarial fracture. Paranasal sinuses and mastoid air cells: Clear. Mild nasal septal deviation towards the right. MRI is more sensitive for detecting acute processes such as infarct, and may be considered if clinica lly warranted. IMPRESSION: No acute intracranial CT abnormality.
[2023-11-18] MEDS ORDERED: NALOXONE 0.4 MG/ML 1 ML VIAL IV PRN (00:11)
[2023-11-18] MEDS ORDERED: KETOROLAC 15 MG/ML 1 ML VIAL IVP PRN (00:11)
[2023-11-18] MEDS ORDERED: ONDANSETRON 4 MG/2 ML VIAL IVP PRN (00:11)
[2023-11-18] MEDS: SODIUM CHLORIDE 0.9% 1,000 ML IV SCH (00:45)
[2023-11-18 02:29] LABS: Erythrocyte Sedimentation Rate 14 mm/Hr (0-20)
--- NOTE | 2023-11-18 14:48 | P.CNNES ---
History of Present Illness Consult date: 11/18/23 Requesting physician: Erlin Encinas Reason for Consult: Difficulty ambulating History of Present Illness: Patient is a 33-year-old left-handed female, otherwise healthy came to the hospital yesterday at 6:01 PM for numbness of the lower body waist down and weakness, difficulty walking. Patient's was also present and both of them provided with a history. Patient had a miscarriage in July 2023. Shortly after she noticed numbness of the legs with complete numbness of her hands and feet. She believed that it was from anemia, saw her OB, and the blood tests were normal. She started seeing chiropractor for possible pinched nerve. The symptoms went away after couple days. However the symptoms kept on coming back and forth. She will have numbness of the legs from waist down for couple days, and she would see chiropractor, and the symptoms would go away for couple days and would come back. However in the last couple days the symptoms got much worse in the lower limbs. She has developed significant weakness of the lower limbs, numbness of the lower limbs and some tingling in the hands bilaterally. The numbness is equal involving bilateral lower limbs, but the weakness is more in the right as compared to the left. Patient denies any problem with bowel or bladder control, any urgency, frequency or incontinence. She still has full sensation when voiding or having bowel movement. Patient's has noticed that she cannot walk by herself, because she cannot balance, and needs support. She walks like an old person which is something new in the last couple days. Otherwise she walks normally without any need for device. Patient denies any prior history of numbness or tingling, prior to July 2023. No history of optic neuritis or vertigo. (Patient uses "couple days" term for most of her symptoms as above) Vital signs on arrival blood pressure 127/79, pulse rate 100, temperature 97.8.. Blood test shows normal CBC, CMP, CRP. ESR is 14. UA shows moderate leukocyte esterase. Rare bacteria. CT head revealed no acute intracranial abnormality. CT lumbar spine normal. I personally reviewed CT of the brain and lumbar spine, both are normal. Patient denies history of hypertension, diabetes, tobacco use or significant alcohol use. She does not take any control pills. Patient states her paternal grandmother had lupus but no family history of MS. Patient takes multivitamins, Atarax, Zoloft 150 mg, Adderall 15 mg twice daily and Vraylar Review of Systems Constitutional: Reports weight gain, Denies chills, Denies fever Eyes: denies blurred vision, denies bulging eye, denies pain, denies loss of peripheral vision, denies loss of vision Ears: deny: decreased hearing, ear discharge Ears, nose, mouth and throat: Reports headache (sometimes), Denies sore throat, Denies vertigo Cardiovascular: Denies chest pain, Denies shortness of breath Respiratory: Denies cough, Denies excessive sputum Gastrointestinal: Reports vomiting, Denies abdominal pain, Denies diarrhea, Denies nausea Genitourinary: Denies dysuria, Denies stress incontinence, Denies urge incontinence, Denies urinary frequency Musculoskeletal: Reports low back pain (6, chronic), Denies myalgias, Denies neck pain Integumentary: Denies pruritus, Denies rash Neurological: Reports as per HPI Psychiatric: Reports anxiety, Reports depression Endocrine: Reports fatigue, Reports weight change Hematologic/Lymphatic: Reports easy bruising, Denies easy bleeding Past Medical History Past Medical History: No Reported History Additional Past Medical History / Comment(s): miscarriage in July 2023 History of Any Multi-Drug Resistant Organisms: None Reported Past Surgical History: No Surgical Hx Reported Past Psychological History: No Psychological Hx Reported Smoking Status: Never smoker Past Alcohol Use History: Occasional Past Drug Use History: None Reported Medications and Allergies Home Medications Medication Instructions Recorded Confirmed Type Cariprazine HCl [Vraylar] 3 mg PO HS 08/31/23 11/17/23 History Dextroamphetamine/Amphetamine 15 mg PO BID@0900,1430 08/31/23 11/17/23 History [Adderall] Multivitamins, Thera [Multivitamin 1 tab PO DAILY 08/31/23 11/17/23 History (formulary)] Sertraline [Zoloft] 150 mg PO DAILY 08/31/23 11/17/23 History hydrOXYzine HCL [Atarax] 50 mg PO BID PRN 08/31/23 11/17/23 History Allergies Allergy/AdvReac Type Severity Reaction Status Date / Time codeine Allergy Rash/Hives Verified 11/17/23 21:09 Physical Examination - Vital Signs Vital Signs: Vital Signs Temp Pulse Pulse Resp BP BP Pulse Ox 11/18/23 07:00 98.1 F 61 15 105/72 99 11/18/23 05:32 97.9 F 66 17 100/66 99 11/18/23 02:00 75 17 93/62 97 11/17/23 18:37 97.8 F 100 18 127/79 98 Intake and Output 11/17/23 11/18/23 11/18/23 22:59 06:59 14:59 Intake Total 118 Balance 118 Intake: Oral 118 Other: Voiding Method Toilet Weight 63.503 kg 63.503 kg Patient is a young female, very pleasant, in no acute distress. Patient is alert awake oriented to time place and person. Speech and language functions are normal. Patient can name and repeat very well. No aphasia or dysarthria. Attention, concentration and fund of knowledge is adequate. On cranial nerve examination, pupils are equal, round and reacting to light, visual mcginnis are full on confrontation, with no neglect on double simultaneous stimulation. Extraocular muscles are intact with no nystagmus. Face is symmetric, tongue protrudes to the midline. Palatal elevation and sensation normal, hearing and shoulder shrug normal, facial sensation normal. On muscle strength testing, there is no pronator drift and the strength is normal in arms distally and proximally. In the lower limbs (right/left) hip flexion 4 4-/4 4-, adduction 5/5, abduction 5/5 knee extension 5/5, inversion 5/5, peronei/4+, ankle dorsiflexion 4-3+/4+, toe extension 3+/3+ Deep tendon reflexes are symmetric 2+ to 3 bilaterally at the biceps and brachioradialis, 3+ at the knees, 2 ankles and patient has bilateral Babinski. No clonus. Sensory to touch is decreased from toes all the way up to the T7 level. Cerebellar function showed no ataxia for [id number] testing. Patient has ataxia for bilateral lower limbs, left much worse than right. Tone and bulk of muscles normal. Gait: Patient very unsteady. She walks with wide-based, short steps, and required hanging on with both hands. On general examination, there is no carotid bruit or murmur, S1-S2 audible. Chest is clear on consultation. Abdomen is soft nontender. No organomegaly, bowel sounds present. Peripheral pulses are present. No peripheral edema. 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 Possible transverse myelitis. Localization probably in high thoracic or cervical spine. * Patient has been having intermittent numbness in the same distribution as above, off and on since July 2023. Rule out MS. Plan: * MRI of the brain, cervical and thoracic spine with and without contrast to evaluate for MS, evaluate for transverse myelitis. * Detailed blood testing to evaluate for autoimmune disease. Rule out B12, folate deficiency. * Patient perhaps may need lumbar puncture. * Start steroids, after MRI is completed. * PT OT, evaluate gait. * Fall risk precautions. * DVT prophylaxis: Suggest SCDs. Avoid heparin, as patient may need lumbar puncture in the morning. * Neurology will follow. Thank you for the consult. Time with Patient: Greater than 30
--- NOTE | 2023-11-18 18:14 | MR ---
EXAMINATION TYPE: MR brain/cspine wo/w DATE OF EXAM: 11/18/2023 3:52 PM CLINICAL INDICATION:Female, 33 years old with history of Paraparesis, eval MS or Transverse Myelitis; PHH, Paraparesis, evaluate for MS or transverse myelitis. COMPARISON: 11/17/2023 . TECHNIQUE: Multi planar, multi sequence imaging was performed through the brain including: T1, T2, Inversion rec overy, Diffusion weighted imaging, and gradient echo imaging. No gadolinium was given. Multi planar, multi sequence imaging was performed utilizing: T1-weighted, T2-weighted, and turbo inv ersion recovery imaging of the cervical spine. IV Contrast: 6.5 cc Gadavist FINDINGS: The izquierdo-white junctions, ventricular system, basal cisterns appear unremarkable.. Midline structures show no abnormality. Diffusion-weighted imaging shows no evidence of restricted diffusion. The susce ptibility weighted images do not reveal any evidence for micro-hemorrhage. No abnormal postcontrast e nhancement. The bone marrow signal is within normal limits. Paranasal sinuses and mastoid air cells: No significant paranasal sinus disease. Visualized orbits: Orbital contents are intact. Alignment: The cervical vertebral bodies have preserved heights. Alignment is within normal limits gi dorothy patient positioning. Bones: Bone signal is within normal limits. No abnormal bone marrow edema on inversion recovery seque nces. No abnormal postcontrast enhancement. Cord: The spinal cord is unremarkable with regards to their signal intensity and morphology. No abnor mal postcontrast enhancement. Discs: Intervertebral disc signal is maintained. C2-C3: No significant disc pathology. The spinal canal is patent. No neural foraminal stenosis. C3-C4: No significant disc pathology. The spinal canal is patent. No neural foraminal stenosis. C4-C5: No significant disc pathology. The spinal canal is patent. No neural foraminal stenosis. C5-C6: No significant disc pathology. The spinal canal is patent. No neural foraminal stenosis. C6-C7: No significant disc pathology. The spinal canal is patent. No neural foraminal stenosis. C7-T1: No significant disc pathology. The spinal canal is patent. No neural foraminal stenosis. Other: None. IMPRESSION: 1. No significant white matter change or evidence for demyelination. Spinal cord signal is maintaine d. No evidence for multiple sclerosis or transverse myelitis. 2. No evidence for disc herniation or significant spinal canal stenosis. 3. No evidence of intracranial mass or acute/subacute infarct.
[2023-11-18] MEDS: CYANOCOBALAMIN 1,000 MCG/ML 1 ML VIAL IM ONE (21:24)
--- NOTE | 2023-11-18 21:39 | PN ---
PROGRESS NOTE CHIEF COMPLAINT: Progressive paraparesis. HISTORY OF PRESENT ILLNESS: This lady had down getting other studies at this time. PHYSICAL EXAMINATION: Deferred. IMPRESSION: Progressive lower extremity weakness and hypoesthesias. PLAN: Await the MRIs of the brain and spine. LAKISHA / DIANELYSN: [id number] /
[2023-11-18] MEDS: methylPREDNISolone SOD SUCCIN 1,000 MG in SODIUM CHLORIDE 0.9% 250 ML IVPB SCH (22:11)
--- NOTE | 2023-11-18 23:58 | HP ---
HISTORY AND PHYSICAL CHIEF COMPLAINT: Difficulty walking and lower extremity weakness. HISTORY OF PRESENT ILLNESS: This is first known admission for this 33-year-old female. Apparently, in July, she started to have difficulty with dysesthesias and weakness in the legs associated with some ataxia. There was no history of any trauma and she has never had anything like this before. Central nervous system and upper extremities seem to have developed no signs or symptoms. She has had no visual changes. This was steadily getting worse and she came to the office and it was felt by the nurse practitioner that she should be admitted for an urgent inpatient evaluation and neurologic consultation since she was deteriorating. REVIEW OF SYSTEMS: She has had no fever, chills, change in vision, hearing, shortness of breath, chest pain, heart disease, murmurs, abdominal pain, nausea, vomiting, melena, urinary complaints, including renal failure, hematuria, dysuria, and incontinence of either stool or urine. Past medical history, family history, personal and social histories were all otherwise unremarkable and noncontributory. PHYSICAL EXAMINATION: VITAL SIGNS: Normal. HEAD, EARS, EYES, NOSE, MOUTH AND THROAT: Normal. CHEST: Clear. CARDIAC: Normal. ABDOMEN: Soft, nontender. EXTREMITIES: Seem to be normal and she has strength in the lower extremities, but may be slightly reduced. On ambulation, she did seem to be unsteady, and walked with a broad-based gait. IMPRESSION: Lower extremity weakness, dysesthesias, and ataxia, etiology unknown. PLAN: 1. Bedrest. 2. Neurology consult. 3. MRIs of the brain and spinal cord. MMODL / IJN: [id number] /
--- NOTE | 2023-11-19 19:39 | MR ---
EXAMINATION TYPE: MR thoracic spine wo/w con DATE OF EXAM: 11/19/2023 COMPARISON: None HISTORY: No prior, no pain no injury, unable to ambulate sudden onset CONTRAST: Standard multiplanar, multisequence MRI departmental protocol sequences were obtained witho ut contrast and following administration of 6.5 mL intravenous Gadavist contrast material. FINDINGS: Intramedullary examination: The tip of the conus medullaris at the L1-2 level. There is evidence of s ubtle T2 hyperintensity within the dorsum of the spinal cord at the T11-12 level is seen only on axia l T2 images 7-9. The sagittal sequences do not demonstrate T2 hyperintensity. There are no other thor acic spinal cord candidates for T2 hyperintense signal. There is no cord syrinx and the spinal cord h as normal postcontrast appearance. Extramedullary/intradural examination: No abnormalities the precontrast or postcontrast sequences. Extramedullary examination: No focal disc extrusion/protrusion. The morphology of the vertebral segme nts at all levels is normal. No malalignment. No focal skeletal findings. Postcontrast appearance is unremarkable. Extraspinal structures: No incidental findings. IMPRESSION: Subtle evidence for cord T2 hyperintense signal the T11-12 level.
[2023-11-19] MEDS: CYANOCOBALAMIN 1,000 MCG/ML 1 ML VIAL IM SCH (20:19)
[2023-11-19] MEDS: ERGOCALCIFEROL 1,250 MCG (50,000 IU) CAPSULE PO SCH (20:20)
--- NOTE | 2023-11-19 20:46 | PN ---
PROGRESS NOTE DATE OF SERVICE: 11/19/2023 CHIEF COMPLAINT: Ataxia. HISTORY OF PRESENT ILLNESS: This lady is doing fairly well. It is very difficult to make a diagnosis based on her history. Interestingly, her B12 is low and this could create dorsal column problems for her. PHYSICAL EXAMINATION: CHEST: Clear. CARDIAC: Normal. ABDOMEN: Soft, nontender. IMPRESSION: 1. Difficulty ambulating due to ataxia. 2. B12 deficiency. PLAN: Administer B12. An injection was ordered, then canceled for some reason. MMODL / IJN: [id number] /
[2023-11-19] MEDS: hydrOXYzine HCL 25 MG TAB PO PRN (22:04)
[2023-11-19] MEDS: ACETAMINOPHEN TAB 325 MG TAB PO PRN (22:05)
[2023-11-20] MEDS: SERTRALINE 50 MG TAB PO SCH (09:00)
--- NOTE | 2023-11-20 10:05 | P.PN ---
Subjective Progress Note Date: 11/19/23 Patient was seen for a follow-up. Patient states she is feeling much better. She still has tightness involving the anterior abdominal region, but less pressure. She feels she is able to move her foot much better. Please refer to examination. Objective - Vital Signs Vital signs: Vital Signs Temp 98.4 F 11/20/23 07:00 Pulse 78 11/20/23 07:00 Resp 16 11/20/23 07:00 BP 97/58 11/20/23 07:00 Pulse Ox 98 11/20/23 07:00 FiO2 Intake & Output 11/19/23 11/20/23 11/20/23 18:59 06:59 18:59 Intake Total 850 Balance 850 Intake: Intake, IV Titration 850 Amount Sodium Chloride 0.9% 1, 600 000 ml @ 50 mls/hr IV . Q20H [facility]O Rx#:[id number] methylPREDNISolone SOD 250 SUCCIN 1,000 mg In Sodium Chloride 0.9% 250 ml @ 250 mls/hr IVPB DAILY [facility]O Rx#:[id number] Other: # Voids 3 - Exam Mental status, speech and language functions are normal. Cranial nerves are normal. Muscle strength is normal in the arms distally and proximally. In the lower limbs the weakness is symmetric, hip flexion 4+5-, ankle dorsiflexion 4, toe extension 4 bilaterally. Reflexes are brisk and plantars are upgoing. Sensory examination revealed decreased sensation in the lower limbs up to T7. 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 Possible transverse myelitis. Localization probably in high thoracic or cervical spine. * Patient has been having intermittent numbness in the same distribution as above, off and on since July 2023. Rule out MS. * Vitamin B12 deficiency * Vitamin D deficiency Plan: * MRI of the brain, cervical spine revealed no significant white matter changes or evidence for demyelination. Spinal cord signal is maintained. No evidence for multiple sclerosis or transverse myelitis. No evidence for disc herniation or significant spinal canal stenosis. No evidence of intracranial mass or acute/subacute infarct. * MRI thoracic spine is pending. Will be performed at 5:30 PM. * B12 188, MMA 4.38, folate 30.90, vitamin D 26.6. Angiotensin-converting enzyme 32 which is normal. DONA negative, Sjogren's antibodies negative, RPR, Lyme titer negative. Vitamin B6 pending. * Patient has severe vitamin B12 deficiency. Patient has received vitamin B12 injection 1000 mcg IM x 1 dose yesterday. She will be maintained on vitamin B12 1000 mcg IM daily for 5 days. * Check copper, zinc level and parietal cell antibodies. * No indication for lumbar puncture if the MRI of the thoracic spine comes back normal. * Patient is doing much better. Today is day #2 of Solu-Medrol. * PT OT, evaluate gait. * Fall risk precautions. * DVT prophylaxis: Suggest SCDs. Avoid heparin, as patient may need lumbar puncture in the morning.
--- NOTE | 2023-11-21 13:30 | P.PN ---
Subjective Progress Note Date: 11/20/23 Patient was seen for a follow-up. Patient's was present today. Patient continues to have weakness of the legs, and paresthesias in the anterior abdominal region, although it is not as severe, less intense. Patient is less unsteady on her feet. No new concerns. She is tolerating medications well. Objective - Vital Signs Vital signs: Vital Signs Temp 98.3 F 11/21/23 07:26 Pulse 74 11/21/23 07:26 Resp 16 11/21/23 07:26 BP 118/73 11/21/23 07:26 Pulse Ox 97 11/21/23 07:26 FiO2 Intake & Output 11/20/23 11/21/23 11/21/23 18:59 06:59 18:59 Intake Total 1130 Balance 1130 Intake: Intake, IV Titration 650 Amount Sodium Chloride 0.9% 1, 400 000 ml @ 50 mls/hr IV . Q20H [facility]O Rx#:[id number] methylPREDNISolone SOD 250 SUCCIN 1,000 mg In Sodium Chloride 0.9% 250 ml @ 250 mls/hr IVPB DAILY [facility]O Rx#:[id number] Oral 480 Other: Voiding Method Toilet # Voids 2 - Exam Mental status, speech and language functions are normal. Cranial nerves are normal. Muscle strength is normal in the arms distally and proximally. In the lower limbs the muscle strength is (right/left) hip flexion 4+/4+, knee extension 5/5, ankle dorsiflexion 4 4-/4+5-, Perronei 4+/5, inversion 5/5, toe extension 4/4, toe flexion 4+/4+. Reflexes are brisk and plantars are upgoing. Sensory examination revealed decreased sensation in the lower limbs up to T7. 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 Possible transverse myelitis. L ocalization probably in high thoracic or cervical spine. * Patient has been having intermittent numbness in the same distribution as above, off and on since July 2023. Rule out MS. * Vitamin B12 deficiency * Vitamin D deficiency Plan: * MRI of the brain, cervical spine revealed no significant white matter changes or evidence for demyelination. Spinal cord signal is maintained. No evidence for multiple sclerosis or transverse myelitis. No evidence for disc hernia tion or significant spinal canal stenosis. No evidence of intracranial mass or acute/subacute infarct. * MRI thoracic spine revealed subtle evidence for cord T2 hyperintense signal at T11-12 level. I reviewed MRI, agree with the findings. * This may potentially be related to B12 deficiency, although TM also in the differential. * B12 188, MMA 4.38, folate 30.90, vitamin D 26.6. Angiotensin-converting enzyme 32 which is normal. DONA negative, Sjogren's antibodies negative, RPR, Lyme titer negative. Vitamin B6 15, normal. * Patient has severe vitamin B12 deficiency. Continue vitamin B12 1000 mcg IM daily for 5 days. * Check copper, zinc level and parietal cell antibodies. * Lumbar puncture in the morning. * Patient is doing much better. Today is day #3/5 of Solu-Medrol. * PT OT, evaluate gait. * Fall risk precautions. * DVT prophylaxis: Suggest SCDs. Avoid heparin, as patient may need lumbar puncture in the morning.
[2023-11-21 15:28] LABS: Glucose,CSF 75 mg/dL (40-70); Total Protein,CSF 46 mg/dL (12-60)
[2023-11-21 16:27] LABS: Appearance,CSF Clear; CSF Tube Number 3; Nucleated Cells, CSF 0 u/L (0-5); Red Blood Cell,CSF 0 u/L (0-10)
--- NOTE | 2023-11-21 21:10 | PN ---
PROGRESS NOTE DATE OF SERVICE: 11/20/2023 CHIEF COMPLAINT: Lower extremity dysesthesias and ataxia. HISTORY OF PRESENT ILLNESS: The patient is doing well. An MRI has been ordered to look at an area on the dorsal spine. She does feel that she is improved with B12 injections and this is most likely to be due to B12 deficiency. PHYSICAL EXAMINATION: CHEST: Clear. CARDIAC: Normal. ABDOMEN: Soft and nontender. IMPRESSION: 1. Lower extremity dysesthesias and ataxia. 2. B12 deficiency. PLAN: Await MRI results and an LP is planned. MMODL / IJN: [id number] /
--- NOTE | 2023-11-22 12:33 | P.PN ---
Subjective Progress Note Date: 11/21/23 Patient was seen for a follow-up. Patient's was present today. Patient complains of some lower back pain but that is for quite some time, not very intense. Patient appears very anxious for upcoming lumbar puncture. Patient denies any new neurological symptoms. Feels slightly better. Patient is less unsteady on her feet. No new concerns. She is tolerating medications well. Objective - Vital Signs Vital signs: Vital Signs Temp 98.6 F 11/21/23 13:36 Pulse 84 11/21/23 13:36 Resp 15 11/21/23 13:36 BP 118/71 11/21/23 13:36 Pulse Ox 96 11/21/23 13:36 FiO2 Intake & Output 11/20/23 11/21/23 11/21/23 18:59 06:59 18:59 Intake Total 1130 Balance 1130 Intake: Intake, IV Titration 650 Amount Sodium Chloride 0.9% 1, 400 000 ml @ 50 mls/hr IV . Q20H [facility]O Rx#:[id number] methylPREDNISolone SOD 250 SUCCIN 1,000 mg In Sodium Chloride 0.9% 250 ml @ 250 mls/hr IVPB DAILY [facility]O Rx#:[id number] Oral 480 Other: Voiding Method Toilet # Voids 2 - Exam Mental status, speech and language functions are normal. Cranial nerves are normal. Muscle strength is normal in the arms distally and proximally. In the lower limbs the muscle strength is (right/left) hip flexion 4+/4+, knee extension 5/5, ankle dorsiflexion 4 4-/4+5-, Perronei 4+/5, inversion 5/5, toe extension 4/4, toe flexion 4+/4+. Reflexes are brisk and plantars are upgoing. Patient feels numbness in the legs all the way up to T7 level. 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 Possible transverse myelitis. Localization probably in high thoracic or cervical spine. * Patient has been having intermittent numbness in the same distribution as ab ove, off and on since July 2023. Rule out MS. * Vitamin B12 deficiency * Vitamin D deficiency Plan: * MRI of the brain, cervical spine revealed no significant white matter changes or evidence for demyelination. Spinal cord signal is maintained. No evidence for multiple sclerosis or transverse myelitis. No evidence for disc herniation or significant spinal canal stenosis. No evidence of intracranial mass or acute/subacute infarct. * MRI thoracic spine revealed subtle evidence for cord T2 hyperintense signal at T11-12 level. I reviewed MRI, agree with the findings. * This may potentially be related to B12 deficiency, although TM also in the differential. * B12 188, MMA 4.38, folate 30.90, vitamin D 26.6. Angiotensin-converting e nzyme 32 which is normal. DONA negative, Sjogren's antibodies negative, RPR, Lyme titer negative. Vitamin B6 15, normal. * Patient has severe vitamin B12 deficiency. Continue vitamin B12 1000 mcg IM daily for 5 days. * Check copper, zinc level and parietal cell antibodies. * Lumbar puncture will be carried out, to rule out MS. Patient consented. Possible risk and benefits informed. * Patient is doing much better. Today is day #4/5 of Solu-Medrol. * PT OT, evaluate gait. * Fall risk precautions. * DVT prophylaxis: Suggest SCDs.
--- NOTE | 2023-11-22 12:47 | P.PCN ---
Date of Procedure: 11/21/23 Preoperative Diagnosis: Spastic gait, rule out MS Postoperative Diagnosis: Spastic gait, rule out MS Procedure(s) Performed: Lumbar puncture Anesthesia: local Surgeon: Helen Lugo Pathology: none sent Condition: stable Disposition: floor Indications for Procedure: Rule out MS. Description of Procedure: Informed consent was obtained from patient. Very detailed risks and benefits of the procedure, and the indication of procedure was explained to the patient in detail in the presence of nurse. Patient was informed of the risk of infection, bleeding, numbness, back pain, and the features of post spinal headache and the treatment. Patient was placed in the sitting position on the side of the bed. The procedure was performed under strict aseptic conditions. L4 lumbar space was identified and marked. Low back region was sterilized with ChloraPrep and then with Betadine, and anesthetized with 1% lidocaine. Patient was very anxious, and very apprehensive even before the starting of the procedure. A spinal needle 21-gauge, 3.5 inch inserted at L4 lumbar space. I was able to enter subarachnoid space in 1 pass. Patient complaining of pain while the CSF was being collected. It appeared patient's spinal fluid was coming with increased force, almost like a spurt/continuous drain. I wanted to check the pressure while she was in that position, but patient started crying, not able to tolerate the procedure, but still wanted to continue to collect the fluid. Even in about less than 1 to 2 minutes maximum, I was able to collect 9 cc of colorless and clear fluid in 3 tubes. The spinal fluid was atraumatic, colorless and clear. About 9 mL of spinal fluid was collected in 3 tubes. Stylette was reintroduced, spinal needle withdrawn. Band-Aid applied. Patient was recommended to lay flat for half an hour. Patient tolerated the procedure very well.
--- NOTE | 2023-11-22 21:15 | PN ---
PROGRESS NOTE DATE OF SERVICE: 11/21/2023 CHIEF COMPLAINT: Lower extremity weakness, dysesthesia, and ataxia. HISTORY OF PRESENT ILLNESS: This lady is doing well. A spinal tap is planned. PHYSICAL EXAMINATION: CHEST: Clear. CARDIAC: Normal. ABDOMEN: Soft, nontender. She does believe that her legs are doing better since she has received B12. IMPRESSION: Lower extremity weakness, ataxia, and B12 deficiency. PLAN: Await lumbar puncture. MMODL / IJN: [id number] /
[2023-11-22] MEDS: hydrOXYzine HCL 25 MG TAB PO PRN (21:51)
--- NOTE | 2023-11-22 22:01 | PN ---
PROGRESS NOTE CHIEF COMPLAINT: Lower extremity weakness, dysesthesias, and ataxia. HISTORY OF PRESENT ILLNESS: This lady is doing well. She has had no headaches following the spiral. She is doing well and could probably go home soon. PHYSICAL EXAMINATION: CHEST: Clear. CARDIAC: Normal. ABDOMEN: Soft, nontender. IMPRESSION: 1. Lower extremity hypoesthesias, dysesthesias, and weakness with ataxia. 2. B12 deficiency. PLAN: Probably home in the next day or 2 if she is cleared by Neurology. MMODL / IJN: [id number] /
--- NOTE | 2023-11-23 01:12 | P.PN ---
Subjective Progress Note Date: 11/22/23 Patient was seen for a follow-up. Patient is doing slightly better. Patient feeling tightness in the calves, and tingling in the bottom of the feet. Abdomen still feels somewhat tight. Legs feels tight but no numbness. Objective - Vital Signs Vital signs: Vital Signs Temp 98.1 F 11/22/23 07:25 Pulse 72 11/22/23 07:25 Resp 16 11/22/23 07:25 BP 136/79 11/22/23 07:25 Pulse Ox 97 11/22/23 07:25 FiO2 Intake & Output 11/21/23 11/22/23 11/22/23 18:59 06:59 18:59 Intake Total 118 Balance 118 Intake: Oral 118 Other: Voiding Method Toilet # Voids 2 3 - Exam Mental status, speech and language functions are normal. Cranial nerves are normal. Muscle strength is normal in the arms distally and proximally. In the lower limbs the muscle strength is (right/left), knee extension 5/5, ankle dorsiflexion 4 4-/5-, Perronei 4+/5, inversion 5/5, toe extension 4/4-, toe flexion 4/4. Reflexes are brisk and plantars are upgoing. Sensory to pinprick was normal in the arms and legs distally and proximally. No sensory level noted on the back. Patient has mild ataxia for [id number] testing bilaterally. No ataxia in the upper limbs. 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 Possible transverse myelitis. Localization probably in high thoracic or cervical spine. * Patient has been having intermittent numbness in the same distribution as above, off and on since July 2023. Rule out MS. * Vitamin B12 deficiency * Vitamin D deficiency Plan: * MRI of the brain, cervical spine revealed no significant white matter changes or evidence for demyelination. Spinal cord signal is maintained. No evidence for multiple sclerosis or transverse myelitis. No evidence for disc herniation or significant spinal canal stenosis. No evidence of intracranial mass or acute/subacute infarct. * MRI thoracic spine revealed subtle evidence for cord T2 hyperintense signal at T11-12 level. I reviewed MRI, agree with the findings. * This may potentially be related to B12 deficiency, although TM also in the differential. * Patient has significant weakness of distally bilateral lower limbs. We will check MRI of the lumbar spine as well. * B12 188, MMA 4.38, folate 30.90, vitamin D 26.6. Angiotensin-converting enzyme 32 which is normal. DONA negative, Sjogren's antibodies negative, RPR, Lyme titer negative. Vitamin B6 15, normal. * Patient has severe vitamin B12 deficiency. Continue vitamin B12 1000 mcg IM daily for 5 days. * Await copper, zinc level and parietal cell antibodies. * Cerebrospinal fluid with RBC 0, WBC 0, glucose 75, total protein 46 (12-60). MS panel, viral cultures pending. * Patient is doing much better. Today is day #5/5 of Solu-Medrol. Patient to continue prednisone from tomorrow. Patient will take prednisone 60 mg daily for 7 days, then decrease by 10 mg daily until off. Prescription placed in the chart. * PT OT, evaluate gait. * Fall risk precautions. * DVT prophylaxis: Suggest SCDs. * Recommend patient follow up with neurologist outpatient. * Dr. Americo Martino to resume neurology service from the morning.
[2023-11-23 08:27] VITALS: BP 142/86; PULSE 63; RESP 14; TEMP 98
--- NOTE | 2023-11-23 09:53 | MR ---
EXAMINATION TYPE: MR lumbar spine wo con DATE OF EXAM: 11/23/2023 COMPARISON: CT scan 11/17/1999 HISTORY: Rt foot drop, abnormal CT, stenosis TECHNIQUE: T1 and T2 axial and sagittal images of the lumbar spine are submitted. FINDINGS: There is no abnormal signal seen within the visualized spinal cord or paraspinal soft tissu es. Nonspecific subcentimeter thickening or nodularity left adrenal gland too small to characterize b ut likely on the basis of incidental adenoma or hyperplasia. Findings suggestive of gallstone. At L1-2 there is no disc herniation, degenerative disc disease, canal stenosis, or foraminal encroach ment. At L2-3 there is no disc herniation, degenerative disc disease, canal stenosis, or foraminal encroach ment. At L3-4 there is no disc herniation, degenerative disc disease, canal stenosis, or foraminal encroach ment. At L4-5 there is no disc herniation, degenerative disc disease, canal stenosis, or foraminal encroach ment. Mild central broad-based disc bulging. At L5-S1 there is no disc herniation, degenerative disc disease, canal stenosis, or foraminal encroac hment. Mild central broad-based disc bulging. IMPRESSION: 1. Mild central broad-based disc bulging at L4-5 and L5-S1 with no evidence of focal herniation, delano l stenosis or foraminal encroachment. 2. Cholelithiasis.
[2023-11-23 13:18] LABS: Zinc, Serum 38 ug/dL (60-130)
--- NOTE | 2023-11-23 19:58 | DS ---
DISCHARGE SUMMARY CHIEF COMPLAINT: Dysesthesias in the lower extremities with ataxia. HISTORY OF PRESENT ILLNESS AND PHYSICAL EXAMINATION: Details of this lady's history and physical can be found in the initial workup. LABORATORY STUDIES: While she was in the hospital, she had laboratory studies, details of which can be found in the laboratory section of her chart. COURSE IN THE HOSPITAL: After admission, she was placed on bedrest, started on intravenous fluids and seen by Neurology. Her workup was extensive and the most important abnormality was the finding of a low B12. She was started on B12 subcu and her symptoms began to improve. There was no pathology seen on her spinal MRI. She is doing well. It was felt that she could go home on the and she will be followed up in a week. FINAL DIAGNOSES: 1. Lower extremity hypoesthesias, weakness, and ataxia. 2. B12 deficiency. OPERATIONS: None. CONSULTATION: Neurology. She is improved. MMODL / IJN: [id number] /
[2023-11-24 14:32] LABS: VDRL, Qualitative CSF Nonreactive (Nonreactive)
== END 2023-11-23 12:15 | disposition home or self-care (01) | DRG 641 ==
LOC: EC 18:01 → OBSVTOIN 11-18 00:17 → 6NMEDSUR 11-18 00:17
PROVIDERS: ADMIT Family Medicine; ATTEND Family Medicine
PROC: 009U3ZX Drainage of Spinal Canal, Percutaneous Approach, Diagnostic (ICD-10-PCS; principal; 2023-11-21)
DX: E53.8 Deficiency of other specified B group vitamins (principal); R20.2 Paresthesia of skin; R20.1 Hypoesthesia of skin; R27.0 Ataxia, unspecified; E55.9 Vitamin D deficiency, unspecified; R53.1 Weakness; F41.9 Anxiety disorder, unspecified; Z88.5 Allergy status to narcotic agent; Z79.899 Other long term (current) drug therapy; Z28.310 Unvaccinated for COVID-19
CPT/HCPCS: 36415; 70450; 70553; 72131; 72148; 72156; 72157; 80053; 81001; 81025; 82040; 82042; 82164; 82306; 82525; 82607; 82746; 82784; 82945; 83516; 83916; 83921; 84157; 84207; 84630; 85025; 85652; 86038; 86140; 86235; 86592; 86618; 86780; 87070; 87205; 89050; 99285

== ENCOUNTER 2024-04-15 21:17 | Emergency (ER) | payer BC ==
--- NOTE | 2024-05-17 18:16 | US ---
Patient Dayan Hernandez ID [id number] Order # EXAMINATION TYPE: Transabdominal DATE OF EXAM: 04/16/2024 9:18 AM COMPARISON: No comparison available on downtime PACS. CLINICAL INDICATION: Vaginal bleeding EXAM PERFORMED: Pelvic ultrasound EXAM MEASUREMENTS: GESTATIONAL AGE / DATING Physician Established: ( weeks/ days) EDC: Dates by LMP: January (6 weeks/6 days) EDC: Dates by First Scan: ( weeks/ days) EDC: Dates by Current Scan for: ( weeks/ days) EDC: MATERNAL ANATOMY Uterus: 7.9 x 4.2 x 5.2. Endometrial stripe is 0.3 cm. No intrauterine gestational sac evident. No Fl uid evident. Right Ovary: 2.0 x 4.1 x 2.4 Left Ovary: 2.1 x 2.5 x 2.8 Post CDS / Adnexa: No free fluid Presence of free fluid: None. Presence of corpus luteal cyst: Presence of subchorionic bleed: IMPRESSION: 1. No intrauterine gestation identified. Differential diagnosis includes spontaneous , ectopi c , early . Correlate with beta hCG, follow-up ultrasound can be performed.
== END 2024-04-16 01:40 | disposition home or self-care (01) ==
LOC: EC 21:17
CPT/HCPCS: 76801; 76817; 86850; 86900; 86901; 87086; 99284

== ENCOUNTER 2025-03-11 16:20 | Outpatient (CLI) | payer BC ==
[2025-03-11 17:27] VITALS: BP 107/57; PULSE 82; RESP 18; TEMP 97.7
--- NOTE | 2025-04-27 10:07 | P.MSEPDOC ---
Presenting Problems - Arrival Data Date of Arrival on Unit: 03/11/25 Time of Arrival on Unit: 16:20 Mode of Transport: Ambulatory - Complaint OB-Reason for Admission/Chief Complaint: Rule Out SROM Comment: RULE OUT SROM PT STATES 30 MINUTES AGO, CLEAR, PT UNSURE IF SHE MAY HAVE PEED HER PANTS VS SROM Medical History - Information : 4 Para: 1 Term: 1 : 0 Abortions: Spontaneous or Elective: 2 Number of Living Children: 1 - Gestational Age Gestational Age by LORI (wks/days): 31 Weeks and 3 Days Review of Systems - Review of Systems Constitutional: No problems Breast: No problems ENT: No problems Cardiovascular: No problems Respiratory: No problems Gastrointestinal: No problems Genitourinary: No problems Musculoskeletal: No problems Neurological: No problems Skin: No problems Vital Signs - Temperature Temperature: 97.7 F Temperature Source: Temporal Artery Scan - Pulse Right Pulse Oximetery Pulse Rate: 82 Pulse Assessment Method: Pulse Oximetry - Respirations Respiratory Rate: 18 Oxygen Delivery Method: Room Air O2 Sat by Pulse Oximetry: 98 - Blood Pressure Right Arm Blood Pressure: 107/57 Blood Pressure Mean: 73 Blood Pressure Source: Automatic Cuff Medical Screen Scoring - Uterine Contractions Frequency From (mins): 0 Frequency To (mins): 0 - Assessment - Baby A Baseline FHR: 135 Heart Rate - NICHD Category: Category I (Normal) NST: Reactive Physician Notification - Physician Notified Physician Notified Date: 03/11/25 Physician Notified Time: 17:02 Physician: Shana Diaz New Order Received: Yes (amnisure negative, pt may be discharged home after reactive NST) Maternal Triage Index - Maternal Triage Index Presenting for scheduled procedure w/no complaint: No - Stat/Priority 1 Stat Priority 1: No - Urgent/Priority 2 Urgent Priority 2: Yes Provider Notified: Shana Diaz Provider Notified Time: 17:02 Criteria Met for Priority 2: Rule out SROM vs pt voiding, 31 3/7 weeks gestation Disposition - Disposition OB Disposition: Discharge to home Discharge Date: 03/11/25 Discharge Time: 17:15 I agree with the RN Medical Screening Exam: Yes Physician's MSE Comment: I have neither seen nor examined the patient Case reviewed; plan agreed upon as documented in EMR&OBIX.: Yes Diagnosis: RELATED CONDITIONS, UNSPECIFIED, THIRD TRIMESTER
== END 2025-03-11 17:15 | disposition home or self-care (01) ==
LOC: FBPOP 16:20
PROVIDERS: ATTEND Obstetrics & Gynecology
DX: O26.893 Other specified pregnancy related conditions, third trimester (principal); Z3A.31 31 weeks gestation of pregnancy; Z88.5 Allergy status to narcotic agent
CPT/HCPCS: 59025; 84112; 99213